=== PATIENT | female | born 1995 | race Caucasian/White ===

== ENCOUNTER 2020-07-27 19:47 | Emergency (ER) | payer BC ==
[2020-07-27] MEDS ORDERED: ONDANSETRON HCL INJ/PF 4 MG/2 ML SDV IV ONE (20:18)
[2020-07-27] MEDS ORDERED: HYDROMORPHONE HCL INJ/PF 2 MG/ML AMPULE IV ONE ×2 (20:18→21:56)
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
[2020-07-27] MEDS ORDERED: SILVER SULFADIAZINE 1% CREAM 50 GM TP ONE (21:33)
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
[2020-07-27] MEDS ORDERED: DIPH/PERTUSS(ACELL)/TETANUS VAC/PF 0.5 ML SYR (>=10YO) IM ONE (21:34)
[2020-07-27] MEDS ORDERED: ONDANSETRON ODT 4 MG TAB (6 TAB/ER DISP) PO PRN (21:47)
[2020-07-27] MEDS ORDERED: HYDROCODONE/ACETAMINOPHEN 5-325 MG (6 TAB/ER DISP) PO PRN (21:47)
[2020-07-27] MEDS ORDERED: SILVER SULFADIAZINE 1% CREAM 25 GM ONE (22:06)
[2020-07-27 23:18] VITALS: BP 119/62
== END 2020-07-27 23:24 | disposition home or self-care (01) ==
LOC: ER 19:47
DX: T24.211A Burn of second degree of right thigh, initial encounter (principal); T21.11XA Burn of first degree of chest wall, initial encounter; T21.12XA Burn of first degree of abdominal wall, initial encounter; T22.111A Burn of first degree of right forearm, initial encounter; T22.112A Burn of first degree of left forearm, initial encounter; X12.XXXA Contact with other hot fluids, initial encounter; Y93.G3 Activity, cooking and baking; Y92.009 Unspecified place in unspecified non-institutional (private) residence as the place of occurrence of the external cause; X13.1XXA Other contact with steam and other hot vapors, initial encounter; Z23 Encounter for immunization
CPT/HCPCS: 99284; 90471; 96374; 96375; 90715; J1170; J2405; J3490